=== PATIENT | female | born 1990 | race Caucasian/White ===

== ENCOUNTER 2023-07-08 17:08 | Emergency (ER) | payer MEDICAID, SELFPAY ==
[2023-07-08 17:12] VITALS: BP 176/111; PULSE 90; RESP 20; TEMP 36.6; O2SAT 98; BMI 36.6
--- NOTE | 2023-07-08 17:18 | CT_ITS ---
The [address] [address] Patient Name: LAURA JIMENEZ MRN: [id number] date: 1990 Sex: F Assigned Patient Location: ER Current Patient Location: ER Accession/Order Number: [id number] Exam Date: 07/08/2023 17:28 Report Date: 07/08/2023 18:05 At the request of: NURYS FELDMAN Procedure: CT cervical spine wo con EXAM: CT cervical spine wo con HISTORY: pain, fall COMPARISON: None. TECHNIQUE: CT Cervical spine without IV contrast. Coronal and sagittal reformations were performed. Dose reduction techniques were achieved by using automated exposure control and/or adjustment of mA and/or kV according to patient size and/or use of iterative reconstruction technique. FINDINGS: Osseous: The vertebral body heights are maintained. No fracture. Incomplete fusion of the posterior arch of C1. Osteophytes at C5-C6 anteriorly. Soft tissues: No focal fluid collection. Disc levels: C2-C3: No disc protrusion, spinal canal stenosis, or neural foraminal stenosis. C3-C4: No disc protrusion, spinal canal stenosis, or neural foraminal stenosis. C4-C5: No disc protrusion, spinal canal stenosis, or neural foraminal stenosis. C5-C6: No disc protrusion, spinal canal stenosis, or neural foraminal stenosis. C6-C7: No disc protrusion, spinal canal stenosis, or neural foraminal stenosis. C7-T1: No disc protrusion, spinal canal stenosis, or neural foraminal stenosis. CT/CT cervical spine wo con IMPRESSION: No cervical spine fracture or subluxation. Electronically authenticated by: KIMBERLEE REILLY Date: 07/08/2023 18:05
[2023-07-08 18:01] VITALS: BP 150/90
--- NOTE | 2023-07-08 18:42 | ED.GENADUL1 ---
HPI - General Adult General Chief complaint: Head Injury Stated complaint: NECK PAIN Time Seen by Provider: 07/08/23 17:10 Source: patient Mode of arrival: walk-in Limitations: no limitations History of Present Illness HPI narrative: 32-year-old female to the emergency room for neck pain. Patient reports several days ago she was laughing while seated in a chair and actively tipped over. She does not believe she hit her head but she has had neck pain ever since. She denies any numbness, weakness, tingling. He is in her bilateral lateral neck. It feels tight and squeezing. She's been treating with [employer] with minimal relief. She denies . She is otherwise at her baseline health. She denies any vision changes, headache. Related Data Previous Rx's Medication Instructions Recorded cyclobenzaprine 10 mg tablet 10 mg PO BID PRN muscle spasm #10 07/08/23 tabs naproxen 500 mg tablet 500 mg PO BID PRN pain #14 tabs 07/08/23 Allergies Allergy/AdvReac Type Severity Reaction Status Date / Time amoxicillin Allergy Verified 07/08/23 17:15 Penicillins Allergy Hives Verified 07/08/23 17:15 Review of Systems ROS Status of ROS 10 or more systems reviewed and unremarkable except as noted in history and below [facility] Social History Smoking status: Light tobacco smoker Exam Narrative Exam Narrative: VITALS: I have reviewed the triage vital signs. GENERAL: Well developed, well appearing adult in no acute distress. NEURO: Alert and oriented. Moves all extremities. Face is symmetric and expressive. Motor strength and sensation grossly intact in the upper and lower extremities bilaterally.Normal gait. EYES: PERRL. No scleral icterus or conjunctival injection. No discharge. HENT: Normocephalic, atraumatic. Hearing is grossly intact. Nares grossly patent and without discharge. Mucous membranes moist. NECK: No JVD. Patient moves neck without restriction. No midline Increased tone in lateral muscle bulk blt. EXTREMITIES: Symmetric muscle bulk. No joint swelling. No clubbing, cyanosis, or deformity. SKIN: Warm and dry. Normal turgor. No rash or lesions appreciated. PSYCH: Mood, affect, and interaction is appropriate to the setting. Constitutional Vital Signs, click to edit/add: Last Vital Signs Temp 97.8 F 07/08/23 17:12 Pulse 90 07/08/23 17:12 Resp 20 07/08/23 17:12 BP 150/90 H 07/08/23 18:01 Pulse Ox 98 07/08/23 17:12 O2 Del Method Room Air 07/08/23 17:12 Course Vital Signs Vital signs: Vital Signs Temperature 97.8 F 07/08/23 17:12 Pulse Rate 90 07/08/23 17:12 Respiratory Rate 20 07/08/23 17:12 Blood Pressure 176/111 H 07/08/23 17:12 Pulse Oximetry 98 07/08/23 17:12 Oxygen Delivery Method Room Air 07/08/23 17:12 Temperature 97.8 F 07/08/23 17:12 Pulse Rate 90 07/08/23 17:12 Respiratory Rate 20 07/08/23 17:12 Blood Pressure 150/90 H 07/08/23 18:01 Pulse Oximetry 98 07/08/23 17:12 Oxygen Delivery Method Room Air 07/08/23 17:12 Medical Decision Making MDM Narrative Medical decision making narrative: 32-year-old female with neck pain. Vital stable, the patient is afebrile. Neurologic examination is nonfocal. By history and exam this sounds like cervical strain. She was sent for CT imaging by her primary care doctor CT scan without acute findings. Naproxen and Flexeril are prescribed. Return precautions discussed. Follow up with his. Patient was discharged home. Discharge Plan Discharge Chief Complaint: Head Injury Clinical Impression: Cervical muscle strain Patient Disposition: Home, Self-Care Time of Disposition Decision: 18:18 Condition: Good Mode of Transportation: Private Vehicle Prescriptions / Home Meds: New cyclobenzaprine 10 mg tablet 10 mg PO BID PRN (Reason: muscle spasm) Qty: 10 0RF naproxen 500 mg tablet 500 mg PO BID PRN (Reason: pain) Qty: 14 0RF Print Language: Tunisian Instructions: Cervical Strain (ED) Stand Alone Forms: Portal Instructions Referrals: Physician,Non-Staff, MD [Primary Care Provider] - 1 week Discharge Date/Time: 07/08/23 18:25
== END 2023-07-08 18:25 | disposition home or self-care (01) ==
PROVIDERS: Emergency Provider Student in an Organized Health Care Education/Training Program
DX: S16.1XXA Strain of muscle, fascia and tendon at neck level, initial encounter (principal); W07.XXXA Fall from chair, initial encounter; F17.210 Nicotine dependence, cigarettes, uncomplicated
CPT/HCPCS: 72125; 99284

== ENCOUNTER 2024-10-09 20:49 | Emergency (ER) | payer MEDICAID, SELFPAY ==
[2024-10-09 20:52] VITALS: BP 131/82; PULSE 95; TEMP 36.5; O2SAT 98; BMI 37.1
--- NOTE | 2024-10-09 21:08 | XR_ITS ---
The [address] [address] Patient Name: LAURA JIMENEZ MRN: [id number] date: 1990 Sex: F Assigned Patient Location: ER Current Patient Location: Accession/Order Number: [id number] Exam Date: 10/09/2024 21:16 Report Date: 10/09/2024 23:28 At the request of: STEVEN BREAUX Procedure: XR toe RT min 2V EXAM: XR toe RT min 2V HISTORY: The patient is a 34-year-old female, pain COMPARISON: None. XR/XR toe RT min 2V IMPRESSION: The right fifth toe is radiographically negative with no evidence of fracture, dislocation, joint space narrowing, osteophytes, or other osseous or articular abnormalities. Electronically authenticated by: RAUL PHILLIP Date: 10/09/2024 23:28
--- NOTE | 2024-10-09 21:11 | ED_ITS ---
HPI HPI - Extremity Injury (Lower) General Chief Complaint: Extremity Injury, Lower Stated Complaint: Lower Pain Time Seen by Provider: 10/09/24 20:51 Source: patient Mode of arrival: walk-in Limitations: no limitations History of Present Illness HPI Narrative: 34-year-old female presents here with chief complaint of accidental injury to her right little digit. She accidentally stubbed it earlier prior to arrival. Ecchymosis and bruising noted to the proximal aspect of the fifth digit. Patient ambulated here into the emergency room. injury occured at home earlier today Related Data Home Medications ?Medication ?Instructions ?Recorded ?Confirmed blood-glucose meter,continuous 10/09/24 10/09/24 (Dexcom G7 [employer]) blood-glucose sensor (Dexcom G7 10/09/24 10/09/24 Sensor device) duloxetine 30 mg capsule,delayed mg PO 10/09/24 release iloperidone 6 mg tablet (Fanapt) mg 10/09/24 metformin 1,000 mg tablet mg 10/09/24 omeprazole 40 mg capsule,delayed mg 10/09/24 release ondansetron 4 mg disintegrating mg 10/09/24 tablet semaglutide 0.25 mg or 0.5 mg (2 mg subcut 10/09/24 mg/3 mL) subcutaneous pen injector (Ozempic) semaglutide 1 mg/dose (4 mg/3 mL) mg subcut 10/09/24 subcutaneous pen injector (Ozempic) Allergies Allergy/AdvReac Type Severity Reaction Status Date / Time amoxicillin Allergy Unknown Verified 10/09/24 20:57 Penicillins Allergy Hives Verified 07/08/23 17:15 phentermine (From Adipex-P) Allergy Unknown Verified 10/09/24 20:57 Opioid HPI Opioid Management Most Recent Pain and Opioid Data: Last Pain Scale 9 10/09/24 21:21 10/09/24 Review of Systems ROS Narrative All Systems are negative except as noted/marked.All systems reviewed and otherwise negative PFSH PFSH Social History Smoking status: Light tobacco smoker Little interest or pleasure in doing things: not at all Feeling down, depressed, or hopeless: not at all Exam Narrative Exam Narrative: Nurses note and vital signs reviewed and patient is not hypoxic. General: The patient appears well and in no apparent distress. Patient is resting comfortably on cart. Skin: Warm, dry, no pallor noted. There is no rash noted. Head: Normocephalic, atraumatic Eye: Normal conjunctiva, no drainage, EOMI. PERRL Musculoskeletal: Ecchymosis to the 5th digit, no acute swelling or deformity or dislocation, neurovascular intact the patient has no evidence of calf tenderness, no pitting edema, symmetrical pulses noted bilaterally Neurological: A&O x4, normal speech Psychiatric: Cooperative Constitutional Vital Signs, click to edit/add: Last Vital Signs Temp 97.7 F 10/09/24 20:52 Pulse 95 H 10/09/24 20:52 Resp 14 10/09/24 20:52 BP 131/82 10/09/24 20:52 Pulse Ox 98 10/09/24 20:52 O2 Del Method Room Air 10/09/24 20:52 Course Vital Signs Vital signs: Vital Signs Temperature 97.7 F 10/09/24 20:52 Pulse Rate 95 H 10/09/24 20:52 Respiratory Rate 14 10/09/24 20:52 Blood Pressure 131/82 10/09/24 20:52 Pulse Oximetry 98 10/09/24 20:52 Oxygen Delivery Method Room Air 10/09/24 20:52 Temperature 97.7 F 10/09/24 20:52 Pulse Rate 95 H 10/09/24 20:52 Respiratory Rate 14 10/09/24 20:52 Blood Pressure 131/82 10/09/24 20:52 Pulse Oximetry 98 10/09/24 20:52 Oxygen Delivery Method Room Air 10/09/24 20:52 MDM - Extremity Injury (Lower) MDM Narrative Medical decision making narrative: Ecchymosis to the fifth digit x-rays are going to be obtained medicated here with ibuprofen. xray shows nondisplaced 5 digit fracture No fracture and follow-up with Dr. thornton office. Fourth and fifth digit will be rachel taped and postop shoe placed by nursing staff Differential Diagnosis Differential diagnosis: Likely fracture of toe Medical Records Attestation: I reviewed the patient's medical records. Imaging Data toe: My impression: 5th digit fracture Discharge Plan Discharge Chief Complaint: Extremity Injury, Lower Clinical Impression: Fracture of toe Patient Disposition: Home, Self-Care Time of Disposition Decision: 21:24 Condition: Good Prescriptions / Home Meds: No Action omeprazole 40 mg capsule,delayed release(DR/EC) metformin 1,000 mg tablet ondansetron 4 mg tablet,disintegrating duloxetine 30 mg capsule,delayed release(DR/EC) PO (DME) Dexcom G7 Sensor Device MISCELLANEOUS (DME) Dexcom G7 [employer] Misc MISCELLANEOUS Fanapt 6 mg tablet Ozempic 1 mg/dose (4 mg/3 mL) pen injector SUBCUT Ozempic 0.25 mg or 0.5 mg (2 mg/3 mL) pen injector SUBCUT Print Language: Turkish Instructions: Toe Fracture (ED) Referrals: Jesse Wallace DO [Primary Care Provider] - 1 week Abbe Thornton MD [Physician] - 10/11/24 11:00 am
[2024-10-09] MEDS: IBUPROFEN 600 MG TABLET PO (21:21)
== END 2024-10-09 21:45 | disposition home or self-care (01) ==
PROVIDERS: Emergency Provider Emergency Medicine; PCP Family Medicine
DX: S92.504A Nondisplaced unspecified fracture of right lesser toe(s), initial encounter for closed fracture (principal); X58.XXXA Exposure to other specified factors, initial encounter; F17.200 Nicotine dependence, unspecified, uncomplicated
CPT/HCPCS: 73660; 99283